=== PATIENT | female | born 1990 | race Caucasian/White ===

== ENCOUNTER 2018-02-18 12:00 | Inpatient (IN) | payer OTHER ==
[2018-02-18 12:33] LABS: BASO % 0.7 % (0-2.0); EOS % 0.1 % (0-4.5); HEMATOCRIT 37.8 % (32.4-45.2); HEMOGLOBIN 13.2 GM/dL (10.7-15.3); LYMPH % 28.2 % (8-40); MCH 28.3 pg (25.7-33.7); MCHC 34.9 g/dl (32.0-36.0); MEAN PLT VOLUME 9.1 fl (7.5-11.1); MONO % 5.3 % (3.8-10.2); NEUT % 65.7 % (42.8-82.8); PLATELET COUNT 208 K/MM3 (134-434); RBC 4.66 M/mm3 (3.60-5.2); RDW 15.1 % (11.6-15.6); WHITE BLOOD COUNT 8.6 K/mm3 (4.0-10.0)
[2018-02-18] MEDS ORDERED: PHENYLEPHRINE HCL 10 MG/1 ML SINGLE DOSE VIAL ONE (12:33)
[2018-02-18] MEDS ORDERED: morphine SULFATE/Preservative Free 0.5 MG/ML (1cc Syringe) ONE (12:33)
[2018-02-18] MEDS ORDERED: OXYTOCIN 20 UNITS in 0.9% NS 40 UNIT/2,000 ML INFUS.BAG IV ONE (12:36)
[2018-02-18 12:42] LABS: INR 0.87 (0.83-1.09); PROTHROMBIN TIME (PATIENT) 10.3 SEC (9.7-13.0)
[2018-02-18 12:45] LABS: ACTIVATED PTT 29.3 SECONDS (25.2-36.5)
[2018-02-18 12:46] LABS: ANION GAP 15 MMOL/L (8-16); BLOOD UREA NITROGEN 10 mg/dL (7-18); CALCIUM 8.5 mg/dL (8.5-10.1); CHLORIDE 106 mmol/L (98-107); CO2 18 mmol/L (21-32); CREATININE 0.6 mg/dL (0.55-1.3); GLUCOSE,RANDOM 101 mg/dL (74-106); POTASSIUM 3.8 mmol/L (3.5-5.1); SODIUM 139 mmol/L (136-145)
[2018-02-18] MEDS ORDERED: CITRIC ACID/SODIUM CITRATE 30 ML UNIT-DOSE CUP PO ONE (12:57)
--- NOTE | 2018-02-18 12:59 | HP ---
Past Medical History - Admission Chief Complaint: Labor pain History of Present Illness: 27 yo @ 38.4 weeks with previous 3 C-Sections presents in active labor. She denies any vaginal bleeding nor rupture of membrane. Upon admission she was 6-7cm dilated. Decision was made for stat . History Source: Patient Limitations to Obtaining History: No Limitations - Past Medical History ...: 7 ...Para: 3 ...EDC by Sono: 02/28/18 - Past Surgical History Past Surgical History: Yes: Appendectomy (2007), (2008, 2012) Hx Myomectomy: No Hx Transabdominal Cerclage: No - Smoking History Smoking history: Never smoked Have you smoked in the past 12 months: No Aproximately how many cigarettes per day: 0 - Alcohol/Substance Use Hx Alcohol Use: No History of Substance Use: reports: None - Social History Usual Living Arrangement: Yes: With Significant Other History of Recent Travel: No Home Medications - Allergies Allergies/Adverse Reactions: Allergies Allergy/AdvReac Type Severity Reaction Status Date / Time No Known Allergies Allergy Verified 09/29/14 20:16 - Home Medications Home Medications: Ambulatory Orders Ferrous Sulfate [Feosol] 325 mg PO DAILY #30 tablet 02/05/13 Vitamins (Sjr) - 1 tab PO DAILY #30 tablet 10/02/14 Family Disease History - Family Disease History Family History: Unremarkable Review of Systems - Review of Systems Constitutional: reports: No Symptoms Eyes: reports: No Symptoms HENT: reports: No Symptoms Neck: reports: No Symptoms Cardiovascular: reports: No Symptoms Respiratory: reports: No Symptoms Gastrointestinal: reports: No Symptoms Genitourinary: reports: Pain Breasts: reports: No Symptoms Reported Musculoskeletal: reports: No Symptoms Integumentary: reports: No Symptoms Neurological: reports: No Symptoms Endocrine: reports: No Symptoms Hematology/Lymphatic: reports: No Symptoms Psychiatric: reports: No Symptoms Pain Intensity: 9 Physical Exam - Maternity Constitutional: Yes: Well Nourished Eyes: Yes: Conjunctiva Clear HENT: Yes: Atraumatic Neck: Yes: Supple Cardiovascular: Yes: Regular Rate and Rhythm Lungs: Clear to auscultation Breast(s): Yes: WNL - Abdominal Exam/OB Number of Fetuses: Single Presentation: Vertex - Vaginal Exam/OB Dilatation (cm): 6-7 Effacement (%): 100 Amniotic Membrane Status: Intact Station: -1 - Physical Exam ...Motor Strength: WNL Psychiatric: Yes: Alert, Oriented - Labs Lab Results: CBC, BMP 02/18/18 12:15 02/18/18 12:15 Problem List - Problems (1) Previous section complicating Code(s): O34.219 - MATERNAL CARE FOR UNSP TYPE SCAR FROM PREVIOUS DEL Assessment/Plan Previous in labor 38 weeks gestation Admit for repeat Prep and shave Anesthesia to see patient
[2018-02-18] MEDS ORDERED: ELECTROLYTE-148 SOLN 1,000 ML IV SCH (13:00)
[2018-02-18] MEDS ORDERED: ONDANSETRON 4 MG/2 ML VIAL IVPUSH PRN (13:05)
[2018-02-18] MEDS: OXYTOCIN 20 UNITS in 0.9% NS 20 UNIT/1,000 ML INFUS.BAG IV SCH ×2 (13:12→23:18)
[2018-02-18 13:30] VITALS: BMI 37.4
[2018-02-18] MEDS ORDERED: BETAMET ACET/BETAMET NA PH 30 MG/5 ML VIAL ONE (13:47)
[2018-02-18] MEDS ORDERED: ceFAZolin SODIUM 1 GM VIAL ONE (13:48)
[2018-02-18] MEDS ORDERED: IBUPROFEN 600 MG TABLET (FP) PO PRN (13:49)
[2018-02-18] MEDS ORDERED: METHYLERGONOVINE MALEATE 0.2 MG/1 ML AMP IM PRN (13:49)
--- NOTE | 2018-02-18 13:49 | OP ---
Operative Note - Note: Operative Date: 02/18/18 Pre-Operative Diagnosis: Previous in labor Operation: Repeat Low Transverse Post-Operative Diagnosis: Same as Pre-op Surgeon: Anuradha Christiansen [employer]ire Room Supervisor: Guilherme Ernst Anesthesia: Spinal Specimens Removed: Placenta Estimated Blood Loss (mls): 700
[2018-02-18] MEDS ORDERED: IBUPROFEN 800 MG/8 ML IJ IVPB ONE (14:13)
[2018-02-18] MEDS: IBUPROFEN 800 MG/8 ML IJ IVPB PRN ×2 (14:15→23:33)
--- NOTE | 2018-02-18 14:56 | OP ---
DATE OF OPERATION: 02/18/2018 PREOPERATIVE DIAGNOSIS: Previous section in labor. POSTOPERATIVE DIAGNOSIS: Previous section in labor. PROCEDURE: Repeat low transverse section. SURGEON: Anuradha Christiansen MD BLANKING PRESS OPERATOR: Guilherme Ernst MD ANESTHESIA: Spinal. COMPLICATION: None. ESTIMATED BLOOD LOSS: 700 mL. DESCRIPTION OF PROCEDURE: The patient was taken to the operating room where spinal anesthesia was administered. Patient was then prepped and draped in proper sterile fashion. A Pfannenstiel skin incision was made and carried down to the underlying layer of fascia. The fascia was incised in the midline and extended laterally. The superior aspect of the fascial incision was then grasped with a Ba clamp, elevated and the rectus muscle dissected off bluntly. Attention was then turned to the inferior aspect of the fascial incision which in a similar fashion was then grasped with a Ba clamp, elevated and the rectus muscle was dissected off bluntly. The rectus muscle was then in the midline, the peritoneum identified. The survey of the patient's pelvis revealed multiple adhesions due to 3 previous C sections. Extensive adhesiolysis was undertaken. Then the vesicouterine peritoneum was then grasped with a pickup and entered with the Metzenbaum scissors. The lower uterine segment was then incised using a 10 blade and this incision was extended laterally and the head delivered atraumatically. Nose and mouth were suctioned and the cord clamped and cut. The infant was handed to the waiting slice plug cutter operator helper. The placenta was removed manually. The uterus was exteriorized and cleared of all clots and debris. The uterine incision was repaired using 0-Vicryl in a running interlocked fashion. The 2nd layer of the same suture was used as a means to provide excellent hemostasis. Then the pelvis was irrigated. The uterus was returned to the abdomen. The peritoneum was closed using 3-0 Biosyn. The fascia was reapproximated using 0-Vicryl in a running fashion. The skin was closed with manoj. The patient tolerated the procedure well. The patient was then taken to PACU in stable condition. PATHOLOGY: Placenta. Kyra [id number]
[2018-02-19] MEDS: OXYTOCIN 20 UNITS in 0.9% NS 20 UNIT/1,000 ML INFUS.BAG IV SCH (06:09)
[2018-02-19 08:20] LABS: BASO % 0.5 % (0-2.0); EOS % 0.4 % (0-4.5); HEMATOCRIT 29.5 % (32.4-45.2); HEMOGLOBIN 9.5 GM/dL (10.7-15.3); LYMPH % 17.7 % (8-40); MCH 26.8 pg (25.7-33.7); MCHC 32.2 g/dl (32.0-36.0); MEAN CELL VOLUME 83.2 fl (80-96); MEAN PLT VOLUME 8.9 fl (7.5-11.1); MONO % 6.5 % (3.8-10.2); NEUT % 74.9 % (42.8-82.8); PLATELET COUNT 150 K/MM3 (134-434); RBC 3.54 M/mm3 (3.60-5.2); RDW 15.2 % (11.6-15.6); WHITE BLOOD COUNT 7.7 K/mm3 (4.0-10.0)
[2018-02-19] MEDS: SIMETHICONE 80 MG TAB.CHEW (FP) PO PRN ×3 (08:52→20:53)
[2018-02-19] MEDS: oxyCODONE HCL 5 MG TABLET PO PRN ×3 (08:52→20:53)
[2018-02-19] MEDS: IBUPROFEN 600 MG TABLET (FP) PO PRN ×2 (08:53→16:34)
--- NOTE | 2018-02-19 09:12 | PN ---
Progress Note (short form) - Note Progress Note: Anesthesia postop note 27 y/o F s/p spinal anesthesia, duramorph for section POD#1, vss, aaox3, sensory motor intact distally, no complaints, pain well controlled. No anesthesia complications.
[2018-02-19] MEDS: PRENATAL VITAMINS W/ FOLIC ACID TABLET (FP) PO SCH (10:11)
[2018-02-19] MEDS ORDERED: BISACODYL 10 MG SUPP.RECT RC PRN (13:49)
--- NOTE | 2018-02-19 15:12 | PN ---
Post Progress Note - Subjective Subjective: 27 yo Para 4 status post repeat , seen and evaluated. She's out of bed to chair and c/o incision pain. Post Day: 1 Type of Delivery: Repeat C/S Vital Signs: Vital Signs Temperature 99.1 F 02/19/18 10:00 Pulse Rate 96 H 02/19/18 10:00 Respiratory Rate 18 02/19/18 13:00 Blood Pressure 118/68 02/19/18 10:00 O2 Sat by Pulse Oximetry (%) 100 02/18/18 14:50 Breast Exam: Yes: Soft Uterus: Yes: Fundus Firm Incision: Yes: Dressing dry and intact Abdomen/GI: Yes: Abdomen soft, Tolerating PO Lochia: Yes: Rubra Lochia, amount: Small Extremities: Yes: Calves non-tender Activity: Ambulating - Labs Labs: CBC WBC 7.7 K/mm3 (4.0-10.0) 02/19/18 07:00 RBC 3.54 M/mm3 (3.60-5.2) L 02/19/18 07:00 Hgb 9.5 GM/dL (10.7-15.3) L 02/19/18 07:00 Hct 29.5 % (32.4-45.2) L D 02/19/18 07:00 MCV 83.2 fl (80-96) 02/19/18 07:00 MCH 26.8 pg (25.7-33.7) 02/19/18 07:00 MCHC 32.2 g/dl (32.0-36.0) 02/19/18 07:00 RDW 15.2 % (11.6-15.6) 02/19/18 07:00 Plt Count 150 K/MM3 (134-434) D 02/19/18 07:00 MPV 8.9 fl (7.5-11.1) 02/19/18 07:00 Absolute Neuts (auto) 5.8 K/mm3 (1.5-8.0) 02/19/18 07:00 Neutrophils % 74.9 % (42.8-82.8) 02/19/18 07:00 Lymphocytes % 17.7 % (8-40) D 02/19/18 07:00 Monocytes % 6.5 % (3.8-10.2) 02/19/18 07:00 Eosinophils % 0.4 % (0-4.5) D 02/19/18 07:00 Basophils % 0.5 % (0-2.0) 02/19/18 07:00 Nucleated RBC % 0 % (0-0) 02/19/18 07:00 Problem List - Problems (1) Previous section complicating Code(s): O34.219 - MATERNAL CARE FOR UNSP TYPE SCAR FROM PREVIOUS DEL (2) Status post repeat low transverse section Code(s): Z98.891 - HISTORY OF UTERINE SCAR FROM PREVIOUS SURGERY Assessment/Plan Status post repeat Ambulation Analgesia as needed Continue post op care
[2018-02-19] MEDS: ACETAMINOPHEN 325 MG TABLET (FP) PO PRN (20:53)
[2018-02-20] MEDS: SIMETHICONE 80 MG TAB.CHEW (FP) PO PRN ×3 (05:57→23:20)
[2018-02-20] MEDS: ACETAMINOPHEN 325 MG TABLET (FP) PO PRN ×3 (05:57→23:21)
[2018-02-20] MEDS: oxyCODONE HCL 5 MG TABLET PO PRN ×2 (05:57→23:20)
[2018-02-20] MEDS: PRENATAL VITAMINS W/ FOLIC ACID TABLET (FP) PO SCH (09:13)
--- NOTE | 2018-02-20 10:27 | PN ---
Post Progress Note - Subjective Subjective: 27 yo Para 4 status post repeat , seen and evaluated. Doing well. Post Day: 2 Type of Delivery: Repeat C/S Vital Signs: Vital Signs Temperature 98.2 F 02/20/18 07:40 Pulse Rate 83 02/20/18 07:40 Respiratory Rate 20 02/20/18 07:40 Blood Pressure 107/67 02/20/18 07:40 O2 Sat by Pulse Oximetry (%) 100 02/18/18 14:50 Breast Exam: Yes: Soft Uterus: Yes: Fundus Firm Incision: Yes: Dressing dry and intact Abdomen/GI: Yes: Abdomen soft, Tolerating PO Lochia: Yes: Rubra Lochia, amount: Small Extremities: Yes: Calves non-tender Activity: Ambulating - Labs Labs: CBC WBC 7.7 K/mm3 (4.0-10.0) 02/19/18 07:00 RBC 3.54 M/mm3 (3.60-5.2) L 02/19/18 07:00 Hgb 9.5 GM/dL (10.7-15.3) L 02/19/18 07:00 Hct 29.5 % (32.4-45.2) L D 02/19/18 07:00 MCV 83.2 fl (80-96) 02/19/18 07:00 MCH 26.8 pg (25.7-33.7) 02/19/18 07:00 MCHC 32.2 g/dl (32.0-36.0) 02/19/18 07:00 RDW 15.2 % (11.6-15.6) 02/19/18 07:00 Plt Count 150 K/MM3 (134-434) D 02/19/18 07:00 MPV 8.9 fl (7.5-11.1) 02/19/18 07:00 Absolute Neuts (auto) 5.8 K/mm3 (1.5-8.0) 02/19/18 07:00 Neutrophils % 74.9 % (42.8-82.8) 02/19/18 07:00 Lymphocytes % 17.7 % (8-40) D 02/19/18 07:00 Monocytes % 6.5 % (3.8-10.2) 02/19/18 07:00 Eosinophils % 0.4 % (0-4.5) D 02/19/18 07:00 Basophils % 0.5 % (0-2.0) 02/19/18 07:00 Nucleated RBC % 0 % (0-0) 02/19/18 07:00 Problem List - Problems (1) Previous section complicating Code(s): O34.219 - MATERNAL CARE FOR UNSP TYPE SCAR FROM PREVIOUS DEL (2) Status post repeat low transverse section Code(s): Z98.891 - HISTORY OF UTERINE SCAR FROM PREVIOUS SURGERY Assessment/Plan Status post repeat Ambulation Analgesia as needed Continue post op care
[2018-02-20] MEDS: IBUPROFEN 600 MG TABLET (FP) PO PRN (12:50)
[2018-02-21 07:33] LABS: BASO % 0.4 % (0-2.0); EOS % 2.6 % (0-4.5); HEMOGLOBIN 8.9 GM/dL (10.7-15.3); LYMPH % 27.7 % (8-40); MCH 27.2 pg (25.7-33.7); MCHC 32.8 g/dl (32.0-36.0); MEAN CELL VOLUME 82.8 fl (80-96); MONO % 5.3 % (3.8-10.2); PLATELET COUNT 191 K/MM3 (134-434); RBC 3.26 M/mm3 (3.60-5.2); RDW 15.4 % (11.6-15.6); WHITE BLOOD COUNT 6.6 K/mm3 (4.0-10.0)
[2018-02-21 07:38] VITALS: BP 118/69; PULSE 83; TEMP 98.4
--- NOTE | 2018-02-21 09:16 | PN ---
Post Progress Note - Subjective Subjective: c/o pain scale 4/10 voiding without difficulty no c/o dizziness requests for discharge today Post Day: 3 Type of Delivery: Repeat C/S Vital Signs: Vital Signs Temperature 98.4 F 02/21/18 07:25 Pulse Rate 83 02/21/18 07:25 Respiratory Rate 18 02/21/18 07:25 Blood Pressure 118/69 02/21/18 07:25 O2 Sat by Pulse Oximetry (%) 100 02/18/18 14:50 Breast Exam: Yes: Soft, Other (BF ). No: Engorged Uterus: Yes: Fundus Firm, Fundus below umbilicus, Non-tender Incision: Yes: Quinn intact. No: Redness, Oozing Abdomen/GI: Yes: Abdomen soft, Passing flatus (bm done ), Tolerating PO (iet). No: Abdominal Distention, Tender Lochia: Yes: Rubra Lochia, amount: Small Extremities: Yes: Calves non-tender Perineum: Yes: Intact Activity: Ambulating - Labs Labs: CBC WBC 6.6 K/mm3 (4.0-10.0) 02/21/18 06:00 RBC 3.26 M/mm3 (3.60-5.2) L 02/21/18 06:00 Hgb 8.9 GM/dL (10.7-15.3) L 02/21/18 06:00 Hct 27.0 % (32.4-45.2) L 02/21/18 06:00 MCV 82.8 fl (80-96) 02/21/18 06:00 MCH 27.2 pg (25.7-33.7) 02/21/18 06:00 MCHC 32.8 g/dl (32.0-36.0) 02/21/18 06:00 RDW 15.4 % (11.6-15.6) 02/21/18 06:00 Plt Count 191 K/MM3 (134-434) D 02/21/18 06:00 MPV 8.0 fl (7.5-11.1) D 02/21/18 06:00 Absolute Neuts (auto) 4.2 K/mm3 (1.5-8.0) 02/21/18 06:00 Neutrophils % 64.0 % (42.8-82.8) 02/21/18 06:00 Lymphocytes % 27.7 % (8-40) D 02/21/18 06:00 Monocytes % 5.3 % (3.8-10.2) 02/21/18 06:00 Eosinophils % 2.6 % (0-4.5) D 02/21/18 06:00 Basophils % 0.4 % (0-2.0) 02/21/18 06:00 Nucleated RBC % 0 % (0-0) 02/21/18 06:00 Problem List - Problems (1) Previous , delivered, current hospitalization Code(s): O34.21 - MATERNAL CARE FOR SCAR FROM PREVIOUS * DO NOT USE * (2) Anemia Code(s): D64.9 - ANEMIA, UNSPECIFIED (3) Encounter for assessment Code(s): Z39.2 - ENCOUNTER FOR ROUTINE FOLLOW-UP Assessment/Plan s/p repeat c/section , anemia stable. anemia counselled patient is informed BTL done plan discharge today .
[2018-02-21] MEDS: PRENATAL VITAMINS W/ FOLIC ACID TABLET (FP) PO SCH (10:15)
[2018-02-21] MEDS: IBUPROFEN 600 MG TABLET (FP) PO PRN (10:16)
[2018-02-21] MEDS: ACETAMINOPHEN 325 MG TABLET (FP) PO PRN (10:16)
[2018-02-21] MEDS: SIMETHICONE 80 MG TAB.CHEW (FP) PO PRN (10:17)
--- NOTE | 2018-02-21 16:42 | PATH ---
Surgical Pathology Report Patient Name: TERRI KIRK Med. Rec. #: [id number] /Age/Gender: 1990 (Age: 27) / F Account: [id number] Location: [facility] OBS/FLOOR NURSE Taken: 02/18/2018 Received: 02/19/2018 Reported: 02/21/2018 Physicians: Anuradha Christiansen M.D. Specimen(s) Received PLACENTA Clinical History , x3, SAB x2 History of appendectomy, right salpingectomy and ectopic Final Diagnosis PLACENTA, SECTION: 447 G THIRD TRIMESTER PLACENTA WITH TRIVASCULAR UMBILICAL CORD AND UNREMARKABLE PLACENTAL MEMBRANES. Electronically Signed Bianca Sanchez M.D. Gross Description The specimen is received fresh labeled placenta and is a 447 gram, 18.5 x 18.0 x 2.2 cm. placenta with attached membranes and umbilical cord. The attached membranes are spear, translucent with focal opacities and insert marginally. The umbilical cord measures 32 cm. in length and averages 1.1 cm. in diameter. The cord inserts eccentrically, 4 cm. to the nearest margin. No true knots or strictures are identified. Cut surface of the umbilical cord reveals 3 vessels. The surface is foss-blue with minimal fibrin deposition and appropriate caliber vessels. The maternal surface is red-brown with focal defects. Sectioning reveals red-brown, spongy parenchyma. No lesions are identified. Accounting File Clerk sections are submitted in three cassettes as follows: 1- membrane rolls and umbilical cord; 2-3- full thickness sections of placenta. /02/20/2018 [facility]02/20/2018
== END 2018-02-21 15:10 | disposition home or self-care (01) | DRG 540 ==
LOC: JLDR 12:00 → J3W 16:10
PROVIDERS: ADMIT Obstetrics & Gynecology; ATTEND Obstetrics & Gynecology
PROC: 10D00Z1 Extraction of Products of Conception, Low, Open Approach (ICD-10-PCS; principal; 2018-02-18)
DX: O34.219 Maternal care for unspecified type scar from previous cesarean delivery (principal); O90.81 Anemia of the puerperium; Z3A.38 38 weeks gestation of pregnancy; Z37.0 Single live birth
CPT/HCPCS: 36415; 80048; 85025; 85610; 85730; 86593; 86850; 86900; 86901; 88307-TC

== ENCOUNTER 2018-03-26 06:18 | Day surgery (SDC) | payer OTHER ==
[2018-03-22 15:09] VITALS: BMI 34.2
[2018-03-26] MEDS ORDERED: LIDOCAINE HCL/PF 2% SDV 5ML VIAL ONE (07:54)
[2018-03-26] MEDS ORDERED: PROPOFOL 20 ML ONE (07:54)
[2018-03-26] MEDS ORDERED: MIDAZOLAM HCL 2 MG/2 ML SINGLE DOSE VIAL ONE (07:55)
[2018-03-26] MEDS ORDERED: ROCURONIUM BROMIDE 50 MG/5 ML VIAL ONE (07:55)
--- NOTE | 2018-03-26 08:00 | HP ---
Admitting History and Physical - Admission Chief Complaint: Desires tubal sterilization History of Present Illness: 27yo here for tubal sterilization Signed papers to have sterilization during her RLTCS, but done as an emergency and tubal not done at that time Certain she wants no more children. No CP/SOB. No fevers. Feels well. - Past Medical History MANAGER CATH LAB: No: Alzheimer's, CVA, Dementia, Migraine, Multiple Sclerosis, Peripheral Neuropathy, Parkinson's, Seizure, Syncope, TIA, Vertigo, Other Cardiovascular: No: AFIB, Aneurysm, Aortic Insufficiency, Aortic Stenosis, CAD, CHF, Deep Vein Thrombosis, HTN, Hyperlipdemia, NC, Mitral Insufficiency, Mitral Stenosis, Murmur, Pulmonary Hypertension, Other Pulmonary: No: Asthma, Bronchitis, Cancer, COPD, O2 Dependent, Pneumonia, Previously Intubated, Pulmonary Embolus, Pulmonary Fibrosis, Sleep Apnea, Other Gastrointestinal: No: Ascites, Cancer, Constipation, Crohn's Disease, Diverticulitis, Diverticulosis, Esophageal Varices, Gastritis, GERD, GI Bleed, Hemorrhoids, Hiatal Hernia, Inflamatory Bowel Disease, Irritable Bowel Disease, Pancreatitis, Peptic Ulcer Disease, Ulcerative Colitis, Other Hepatobiliary: No: Cirrhosis, Cholelithiasis, Cholecystitis, Choledocholithiasis , Hepatitis A, Hepatitis B, Hepatitis C, Other Renal/: No: Renal Failure, Renal Inusuff, BPH, Cancer, Hematuria, Hemodialysis , Neurogenic Bladder, Renal Calculi, UTI, Other Reproductive: No: Ectopic , Endometriosis, Fibroids, PID, Polycystic Ovary Syndrome, Postmenopausal, Other ...LMP: 04/24/17 ...: 4 ...Para: 4 Infectious Disease: No: AIDS, C-Diff, Herpes Zoster, HIV, MRSA, STD's, Tuberculosis, VREF, Other Psych: No: Addictions, Anxiety, Bipolar, Depression, Panic, Psychosis, Schizophrenia, Other Musculoskeletal: No: Bursitis, Chronic low back pain, Hemiparesis, Hemiplegia, Osteoarthritis, Paraplegia, Other - Past Surgical History Past Surgical History: Yes: Appendectomy (2007), (2008, 2012) - Smoking History Smoking history: Never smoked Have you smoked in the past 12 months: No Aproximately how many cigarettes per day: 0 - Alcohol/Substance Use Hx Alcohol Use: No History of Substance Use: reports: None - Social History Usual Living Arrangement: Yes: With Spouse History of Recent Travel: No Home Medications - Allergies Allergies/Adverse Reactions: Allergies Allergy/AdvReac Type Severity Reaction Status Date / Time No Known Allergies Allergy Verified 03/26/18 07:12 - Home Medications Home Medications: Ambulatory Orders Vitamins (Sjr) - 1 tab PO DAILY tablet 02/20/18 Physical Examination Vital Signs: Vital Signs Temperature 98.1 F 03/26/18 07:09 Pulse Rate 68 03/26/18 07:09 Respiratory Rate 20 03/26/18 07:09 Blood Pressure 103/57 L 03/26/18 07:09 O2 Sat by Pulse Oximetry (%) 99 03/26/18 07:08 Constitutional: Yes: Well Nourished, No Distress, Calm Eyes: Yes: WNL, Conjunctiva Clear, EOM Intact HENT: Yes: WNL, Atraumatic, Normocephalic Neck: Yes: WNL, Supple, Trachea Midline Cardiovascular: Yes: WNL, Regular Rate and Rhythm Respiratory: Yes: WNL, Regular, CTA Bilaterally Gastrointestinal: Yes: WNL, Normal Bowel Sounds Musculoskeletal: Yes: WNL Extremities: Yes: WNL Edema: No Integumentary: Yes: WNL Neurological: Yes: WNL, Alert, Oriented ...Motor Strength: WNL Psychiatric: Yes: WNL Assessment/Plan 27yo here for tubal sterilization, bilateral laparoscopic salpingectomy Still expressing certainty to proceed forward with procedure. Risk and alternatives to procedure discussed- including bleeding, infection and injury to bladder, bowel, vessels, uterus and ovaries. All questions answered; consents signed Postoperative expectations discussed. Gloria Mireles MD
[2018-03-26] MEDS ORDERED: ALBUTEROL SO4 8 GM HFA INHALER IH ONE ×2 (08:19→08:28)
[2018-03-26] MEDS ORDERED: EPINEPHrine 1:10,000 (P-F SYR) 1 MG/10 ML DISP.SYRIN ONE (08:37)
[2018-03-26] MEDS ORDERED: LIDOCAINE HCL 1%, 10 MG/ML (50 mL VIAL) IJ ONE (08:38)
[2018-03-26] MEDS ORDERED: NEOSTIGMINE METHYLSULFATE 0.5 MG/ML - 10 ML MDV ONE (08:58)
[2018-03-26] MEDS ORDERED: GLYCOPYRROLATE 0.2 MG/1 ML VIAL ONE (08:58)
[2018-03-26] MEDS ORDERED: ALBUTEROL SO4 0.083% IH SOL 2.5 MG/3 ML VIAL.NEB. NEB ONE ×2 (09:34→09:45)
--- NOTE | 2018-03-26 09:42 | OP ---
Operative Note - Note: Operative Date: 03/26/18 Pre-Operative Diagnosis: Elective sterilization Operation: laproscopic lysis of adhesions, Left salpingectomy Findings: Right adenxa multiple adhesions unable to remove right tube Post-Operative Diagnosis: Same as Pre-op Surgeon: Gloria Mireles Parimutuel Ticket Cashier: Vaughn Vega Anesthesiologist/ENVIRONMENTAL EDUCATOR: Alma Richardson Anesthesia: General Estimated Blood Loss (mls): 10 Operative Report Dictated: Yes
--- NOTE | 2018-03-26 09:43 | SURG ---
Surgery Application Support Manager Note Application Support Manager: Vaughn Vega PA-C Date of Service: 03/26/18 Diagnosis: Elective sterilization Procedure: Laproscopic lysis of adhesions, Left salpingectomy I was present for the entirety of the operative procedure. For further detail, please refer to operative report.
[2018-03-26] MEDS ORDERED: LACTATED RINGERS SOLUTION 1,000 ML IV SCH (09:45)
[2018-03-26] MEDS ORDERED: oxyCODONE HCL 5 MG TABLET PO PRN (09:45)
[2018-03-26] MEDS ORDERED: ONDANSETRON 4 MG/2 ML VIAL IVPUSH PRN (09:45)
[2018-03-26] MEDS ORDERED: ALBUTEROL SO4 0.083% IH SOL 2.5 MG/3 ML VIAL.NEB. NEB PRN (09:46)
[2018-03-26] MEDS ORDERED: DEXAMETHASONE SOD PHOSPHATE 4 MG/1 ML VIAL ONE (10:07)
[2018-03-26 12:09] VITALS: PULSE 88; TEMP 98.4
[2018-03-26] MEDS ORDERED: oxyCODONE HCL 5 MG TABLET ONE (12:13)
[2018-03-26 14:32] VITALS: BP 101/50
--- NOTE | 2018-03-27 14:37 | PATH ---
Surgical Pathology Report Patient Name: TERRI KIRK Med. Rec. #: [id number] /Age/Gender: 1990 (Age: 27) / F Account: [id number] Location: [facility] SURGICAL Taken: 03/26/2018 Received: 03/26/2018 Reported: 03/27/2018 Physicians: Gloria Mireles Specimen(s) Received LEFT FALLOPIAN TUBE Clinical History Desired sterilization Final Diagnosis LEFT FALLOPIAN TUBE, SALPINGECTOMY: PORTION OF FALLOPIAN TUBE WITH COMPLETE CROSS-SECTION OF THE LUMEN. PARATUBAL CYSTS. Electronically Signed Rula Anderson M.D. Gross Description Received in formalin labeled "left fallopian tube," is a 3.7 cm in length fimbriated fallopian tube. The outer surface is spear-red and smooth. Sectioning reveals an unremarkable lumen. Child Care Lead Teacher sections are submitted in 2 cassettes as follows: 1-fimbria; 2-cross sections of fallopian tube. /03/26/2018 [place]udi/03/26/2018
--- NOTE | 2018-04-09 13:01 | OP ---
DATE OF OPERATION: 03/26/2018 PREOPERATIVE DIAGNOSIS: Desired elective sterilization. POSTOPERATIVE DIAGNOSIS: Desired elective sterilization. OPERATION: Laparoscopic left salpingectomy, lysis of adhesions. SURGEON: Gloria Mireles MD SPORTS MEDICINE TRAINER: Vaughn Vega PA-C ANESTHESIA: General. INTRAVENOUS FLUIDS: Per Anesthesia record. ESTIMATED BLOOD LOSS: 10. FINDINGS: Normal left fallopian tube and ovary. Right adnexa with dense adhesion of the fallopian tube and ovary to the patient's right pelvic sidewall. Unable to distinguish the right fallopian tube and ovary. Normal uterus. COMPLICATIONS: None. CONDITION: Stable to recovery. NATURE OF PROCEDURE: As follows, after appropriate consents were signed, patient was taken to the operating room where general anesthesia was administered. She was placed in dorsal lithotomy position. Plaza catheter was inserted. Quarter-percent Marcaine was injected. Using the 11-blade scalpel, a small incision was made into the umbilicus to accommodate a 5-mm port. The Optiview was inserted under direct visualization without difficulty. Abdomen was then insufflated with gas. Patient was then placed in Trendelenburg position. A left lower quadrant 5-mm port was inserted after being injected with 0.25% Marcaine. The 5-mm trocar was introduced under direct visualization without difficulty. The bowel removed to accommodate better visualization. The uterus appeared normal considering 4 to 6 weeks as the patient was from her delivery. The left fallopian tube and ovary appeared normal. The right fallopian tube and ovary were indistinguishable and adhesed to the right pelvic sidewall. The right lower quadrant port was then inserted also under direct visualization. The left fallopian tube was grasped, followed through to the fimbriated edges, and ligated with the LigaSure along the mesosalpinx and then transected at its insertion to the uterus, and subsequently removed through the left lower quadrant port. The remaining stump was inspected and noted to be hemostatic. Attention was then paid to the right fallopian tube and ovarian stump to see if gentle dissection could allow for more manipulation to be able to distinguish between the 2 as, again, they were adhesed together. By gentle, blunt dissection with instruments, there was no distinguishable fallopian tube to be seen. Decision was then made to end the procedure. There were multiple omental adhesions onto the patient's anterior abdominal wall that had to be taken down with the LigaSure to facilitate visualization during the procedure. These were done so with the LigaSure device. Noting that the omentum was clear of bowel and stump sites at the end of freeing the adhesions were noted to be hemostatic. The left and right lower quadrant ports were removed under direct visualization without difficulty. The umbilical port was removed. The abdomen was deflated of gas. The incisions were closed with Biosyn. Appropriate bandages were applied. The patient was taken from the operating room in stable condition to the recovery room. No antibiotics were given. MD RIGOBERTO WILLETT/[id number]
== END 2018-03-26 14:31 | disposition home or self-care (01) ==
LOC: JASU-SURG 06:18
PROVIDERS: ATTEND Obstetrics & Gynecology
PROC: 0UN54ZZ Release Right Fallopian Tube, Percutaneous Endoscopic Approach (ICD-10-PCS; 2018-03-26)
PROC: 0UT64ZZ Resection of Left Fallopian Tube, Percutaneous Endoscopic Approach (ICD-10-PCS; principal; 2018-03-26 08:00)
DX: Z30.2 Encounter for sterilization (principal); N73.6 Female pelvic peritoneal adhesions (postinfective)
CPT/HCPCS: 36415; 84703; 86850; 86900; 86901; 88302-TC; 94760

== ENCOUNTER 2022-12-20 12:46 | Emergency (ER) | payer OTHER ==
[2022-12-20 13:06] VITALS: BP 113/76; PULSE 69; RESP 16; TEMP 98.5; BMI 38.9
[2022-12-20] MEDS ORDERED: IBUPROFEN 600 MG TABLET (FP) PO ONE ×2 (14:19→14:35)
== END 2022-12-20 15:50 | disposition home or self-care (01) ==
LOC: JERFT 12:46 → JER 12:46 → JERFT 15:50
DX: S93.402A Sprain of unspecified ligament of left ankle, initial encounter (principal); X58.XXXA Exposure to other specified factors, initial encounter
CPT/HCPCS: 73610-TC-LT-FY; 99283-25